=== PATIENT | female | born 2000 | race African-American/Black ===

== ENCOUNTER 2020-04-18 18:35 | Emergency (ER) | payer OTHER ==
[~2020-04-18] VITALS: Ht 172.7 cm; Wt 91.0 kg
[2020-04-18] MEDS ORDERED: CEFTRIAXONE 1 G PREMIX 50 ML IV ONE (19:15)
[2020-04-18] MEDS ORDERED: LABETALOL 5MG/ML SYR 20 MG/4 ML SYRINGE IV ONE (19:30)
[2020-04-18 20:34] LABS: HEMATOCRIT. 34.2 % (36.0-48.0); HEMOGLOBIN. 10.7 g/dL (12.0-16.0); MEAN CORPUSCULAR VOLUME 76.8 fL (81.0-99.0); MEAN PLATELET VOLUME 8.3 fl (7.4-10.4); PLATELET 339 x1000/uL (130-400); RED BLOOD CELL COUNT 4.46 mill/uL (4.2-5.4); RED CELL DISTRIBUTION WIDTH 18.5 % (11.6-14.6)
[2020-04-18 20:40] LABS: CHLORIDE 113 mEq/L (98-107)
[2020-04-18 20:50] LABS: CLARITY URINE CLOUDY (CLEAR); COLOR URINE YELLOW (YELLOW); KETONES URINE NEGATIVE (NEGATIVE); LEUKOCYTE ESTERASE URINE 3+ (NEGATIVE); NITRITE URINE NEGATIVE (NEGATIVE); OCCULT BLOOD URINE 3+ (NEGATIVE); PROTEIN URINE 2+ (NEGATIVE); SPECIFIC GRAVITY URINE 1.014 (1.005-1.030)
[2020-04-18 21:06] LABS: PLATELET ESTIMATE NORMAL
[2020-04-19] MEDS ORDERED: CEPH-569 PO ×2 (00:03→00:21)
[2020-04-19 00:34] VITALS: BP 128/72
== END 2020-04-19 00:35 | disposition home or self-care (01) ==
LOC: ER 18:35
DX: U07.1 COVID-19 (principal); E11.9 Type 2 diabetes mellitus without complications; N39.0 Urinary tract infection, site not specified; R50.9 Fever, unspecified; O90.9 Complication of the puerperium, unspecified
CPT/HCPCS: 36415; 71045; 80048; 80076; 81003; 83605; 84145; 84484; 85025; 87040; 87077; 87086; 87186; 87804; 93005; 96365; 99285; C9803; J0696; U0003